=== PATIENT | male | born 1990 | race Two or more races ===

== ENCOUNTER 2022-12-17 14:01 | Inpatient (IN) | payer OTHER ==
[~2022-12-17] VITALS: Ht 175.3 cm; Wt 102.5 kg
--- NOTE | 2022-12-17 14:13 | NUR ---
CALLED FOR TRIAGE NO RESPONSE
[2022-12-17] MEDS ORDERED: MORPHINE SULFATE INJ 2 MG/ML DISP.SYRIN IV ONE ×2 (14:30→15:30)
[2022-12-17] MEDS ORDERED: ONDANSETRON HCL/PF 4 MG/2 ML VIAL IVP ONE (14:30)
[2022-12-17] MEDS ORDERED: IV NS 0.9% 1,000 ML BAG IV ONE ×2 (14:30→15:30)
--- NOTE | 2022-12-17 14:40 | NUR ---
Patient AOx4 able to communicate concerns and provide his history. Discussed plan of care and patient verbalized agreement.
[2022-12-17] MEDS ORDERED: ONDANSETRON HCL/PF 4 MG/2 ML VIAL ONE ×2 (14:41→15:16)
[2022-12-17] MEDS ORDERED: MORPHINE SULFATE INJ 4 MG/ML DISP.SYRIN ONE ×2 (14:42→15:16)
--- NOTE | 2022-12-17 14:45 | NUR ---
IV placed, no signs of infiltration.
--- NOTE | 2022-12-17 14:58 | NUR ---
Medications administered as ordered.
--- NOTE | 2022-12-17 14:59 | NUR ---
PT to CT, signed consent
[2022-12-17] MEDS ORDERED: IOHEXOL-300 100 ML VIAL IV ONE (15:01)
[2022-12-17] MEDS ORDERED: IV NS 0.9% 250 ML IV ONE (15:02)
[2022-12-17 15:03] LABS: BASOPHILS # (AUTO) 0.1 K/uL (0.0-0.2); BASOPHILS % (AUTO) 0.4 % (0.0-2.0); HEMATOCRIT 45 % (39-51); HEMOGLOBIN 15.1 g/dL (13.5-17.5); LYMPHOCYTES # (AUTO) 0.8 K/uL (0.8-4.8); LYMPHOCYTES % (AUTO) 2.6 % (20.0-44.0); MEAN CORPUSCULAR HGB CONC 33 g/dl (31.0-36.0); MEAN CORPUSCULAR VOLUME 86 fL (80-96); MONOCYTES # (AUTO) 1.4 K/uL (0.1-1.30); MONOCYTES % (AUTO) 4.5 % (2.0-12.0); NEUTROPHILS # (AUTO) 29.3 K/uL (1.8-8.9); NEUTROPHILS % (AUTO) 92.5 % (43.0-81.0); PLATELET COUNT (AUTO) 287 K/uL (150-450); RED BLOOD CELL COUNT(AUTO) 5.29 MIL/uL (4.5-6.0)
[2022-12-17 15:08] LABS: WHITE BLOOD COUNT (AUTO) 31.7 K/uL (4.3-11.0)
[2022-12-17 15:17] LABS: ALANINE AMINOTRANSFERASE 37 U/L (12-78); ALBUMIN 3.9 g/dL (3.4-5.0); ALKALINE PHOSPHATASE 60 U/L (46-116); ASPARTATE AMINOTRANSFERASE 15 U/L (15-37); BILIRUBIN,DIRECT 0.3 mg/dL (0.0-0.2); BILIRUBIN,TOTAL 1.5 mg/dL (0.2-1.0); CALCIUM, SERUM 8.9 mg/dL (8.5-10.1); CARBON DIOXIDE 21 mmol/L (21-32); CHLORIDE 104 mmol/L (98-107); CREATININE 1.2 mg/dL (0.6-1.3); GLUCOSE 132 mg/dL (74-106); LIPASE 46 U/L (73-393); POTASSIUM 3.9 mmol/L (3.5-5.1); SODIUM SERUM 137 mmol/L (136-145); TOTAL PROTEIN, SERUM 7.8 g/dL (6.4-8.2); UREA NITROGEN, BLOOD 10 mg/dL (7-18)
--- NOTE | 2022-12-17 15:17 | NUR ---
Patient states pain went down after morphine admin fro 9 to a 2/10, states that now it is back at 9/10. Informed MD, additional med has been ordered. Confirmed dose with
[2022-12-17] MEDS ORDERED: VANCOMYCIN 1 GM in IV D5W 250 ML IV ONE (15:30)
[2022-12-17] MEDS ORDERED: PIPERACILLIN /TAZOBACTAM 3.375 G in IV D5W 50 ML IV ONE (15:30)
[2022-12-17] MEDS ORDERED: ONDANSETRON HCL/PF - ER 4 MG/2 ML VIAL IV ONE (15:30)
--- NOTE | 2022-12-17 17:07 | NUR ---
LINSEY Alvarado, [phone] opt. 2 Auth# [id number], patient may be admitted
--- NOTE | 2022-12-17 19:23 | NUR ---
Hand off report given to Fausto, for continuity of care
--- NOTE | 2022-12-17 19:25 | NUR ---
bed given 120-1
[2022-12-17] MEDS ORDERED: HYDROMORPHONE 1 MG/1 ML DISP.SYRIN ONE (19:29)
[2022-12-17] MEDS ORDERED: HYDROMORPHONE 1 MG/1 ML DISP.SYRIN IV ONE (19:30)
[2022-12-17 19:59] LABS: LYMPHOCYTES % (MANUAL) 3 % (16-48); MONOCYTES % (MANUAL) 7 % (0-11.0); NEUTROPHILS % (MANUAL) 90 (42-76)
[2022-12-17] MEDS ORDERED: MAGNESIUM HYDROXIDE 30 ML UDC PO PRN (20:00)
[2022-12-17] MEDS ORDERED: ZOLPIDEM TARTRATE 5 MG TABLET PO PRN (20:00)
[2022-12-17] MEDS ORDERED: MAG HYDROX/AL HYDROX/SIMETH 30 ML UDC PO PRN (20:00)
[2022-12-17] MEDS ORDERED: Z GUARD REMEDY 4 OZ OINT TP PRN (20:00)
--- NOTE | 2022-12-17 20:10 | NUR ---
RN NOTE RECEIVED HAND OFF REPORT FROM ED NURSE FÉLIX
--- NOTE | 2022-12-17 20:11 | NUR ---
REPORT GIVEN TO LUCIE DAILY LIA FOR BED 120-1
[2022-12-17 20:25] VITALS: BP 153/85
--- NOTE | 2022-12-17 20:26 | NUR ---
TRANSFERED TO 120-1
--- NOTE | 2022-12-17 20:30 | NUR ---
ADMISSION NOTES ADMITTED A 32-YEAR-OLD MALE, TRANSPORTED VIA GURNEY BY 2 ED PERSONNEL, AAO X4, ON ROOM AIR. VITAL SIGNS FOLLOWS: 99.3, HR 112, RR 26, O2 96%, BP 153/85. ON TELE MONITOR SHOWING SINUS TACH. IV ACCESS ON RAC #20G, INTACT AND FLUSHES WELL, RUNNING NS AT 120 ML/HR. NO COMPLAIN OF PAIN AT THIS TIME. PATIENT IS AMBULATORY WITH BRP. SKIN ASSESSMENT DONE, SKIN IS INTACT. BELONGING LIST CHECKED AND PLACED IN CHART. SAFETY MEASURES IN PLACE: BED LOCKED AND IN LOWEST POSITION, SIDE RAILS UP X2, CALL LIGHT WITHIN REACH.
--- NOTE | 2022-12-17 20:51 | NUR ---
RN NOTE PATIENT'S VAPE IS PLACED IN THE CONTRABAND SAFE.
[2022-12-17] MEDS: PANTOPRAZOLE 40 MG VIAL IV SCH (21:46)
[2022-12-17] MEDS: PIPERACILLIN /TAZOBACTAM 3.375 G in IV D5W 50 ML IV SCH (21:47)
[2022-12-17] MEDS: HYDROMORPHONE INJ 2 MG/ML DISP.SYRIN IV PRN (23:11)
[2022-12-17] MEDS: VANCOMYCIN 1 GM in IV D5W 250ml IV SCH (23:39)
[2022-12-18] VITALS: BP 133/75
--- NOTE | 2022-12-18 03:00 | NUR ---
RN NOTE HANDOFF REPORT GIVEN TO MELLISA FAULKNER
--- NOTE | 2022-12-18 03:01 | NUR ---
RN NOTES RECEIVED REPORT FROM LUCIE RANGEL FOR CONTINUITY OF CARE.
--- NOTE | 2022-12-18 03:04 | NUR ---
RN NOTES PATIENT ASKED FOR SLEEPING PILLS, STATING "I CANNOT SLEEP I NEED SLEEPING PILL" AMBIEN 5MG GIVEN. PATIENT IS ALERT/ORIENTED X 4.
[2022-12-18] MEDS: HYDROMORPHONE INJ 2 MG/ML DISP.SYRIN IV PRN ×5 (03:27→21:18)
[2022-12-18 04:00] VITALS: BP 130/76
[2022-12-18] MEDS: IV NS 0.9% 1,000 ML IV PRN ×2 (04:40→22:35)
[2022-12-18 06:38] LABS: BASOPHILS % (AUTO) 0.1 % (0.0-2.0); EOSINOPHILS % (AUTO) 0.1 % (0.0-6.0); HEMATOCRIT 41 % (39-51); HEMOGLOBIN 13.4 g/dL (13.5-17.5); LYMPHOCYTES % (AUTO) 8.6 % (20.0-44.0); MEAN CORPUSCULAR HGB CONC 33 g/dl (31.0-36.0); MEAN CORPUSCULAR VOLUME 87 fL (80-96); MONOCYTES % (AUTO) 4.4 % (2.0-12.0); NEUTROPHILS # (AUTO) 20.1 K/uL (1.8-8.9); NEUTROPHILS % (AUTO) 86.8 % (43.0-81.0); PLATELET COUNT (AUTO) 260 K/uL (150-450); RED BLOOD CELL COUNT(AUTO) 4.67 MIL/uL (4.5-6.0); WHITE BLOOD COUNT (AUTO) 23.1 K/uL (4.3-11.0)
[2022-12-18 07:17] LABS: BILIRUBIN,TOTAL 1.6 mg/dL (0.2-1.0); CALCIUM, SERUM 8.5 mg/dL (8.5-10.1); CREATININE 0.8 mg/dL (0.6-1.3); MAGNESIUM 2.1 mg/dL (1.8-2.4); PHOSPHORUS 3.8 mg/dL (2.5-4.9); POTASSIUM 3.4 mmol/L (3.5-5.1); TOTAL PROTEIN, SERUM 6.5 g/dL (6.4-8.2)
--- NOTE | 2022-12-18 07:40 | NUR ---
FOOD ASSEMBLER NOTES PT RECEIVED IN BED, ASLEEP. ON ROOM AIR WITH NO S/S OF RESPIRATORY DISTRESS OR SOB. BREATHING EVEN AND UNLABORED. LAC 22G RUNNING NS @ 120 ML/HR. PATIENT DOES NOT APPEAR TO BE IN ANY PAIN OR DISTRESS. SAFETY PRECAUTIONS IN PLACE WITH BED IN LOWEST AND LOCKED POSITION, BED RAILS UP X2, WITH BED SIDE TABLE AND CALL LIGHT WITHIN REACH. WILL CONTINUE TO MONITOR.
[2022-12-18 08:00] VITALS: BP 103/54
[2022-12-18] MEDS: VANCOMYCIN 1 GM in IV D5W 250ml IV SCH ×3 (08:58→23:13)
[2022-12-18] MEDS: PIPERACILLIN /TAZOBACTAM 3.375 G in IV D5W 50 ML IV SCH (10:32)
--- NOTE | 2022-12-18 11:05 | NUR ---
RN NOTES REGARDING PAIN MEDS PATIENT REQUESTED INCREASE IN DOSAGE AND SHORTENED TIME FRAME FOR ADMINISTRATION OF DILAUDID. MELISSA ISLAS DID NOT APPROVE BUT ORDERED ATIVAN TO BE ALTERNATED WITH CURRENT DOES OF DILAUDID. Addendum: 12/18/22 at 1108 by NAVI WALKER RN MELISSA ISLAS DID NOT APPROVE BUT ORDERED ATIVAN TO BE ALTERNATED WITH CURRENT *DOSE OF DILAUDID.
--- NOTE | 2022-12-18 11:08 | NUR ---
RN NOTES FOR PAIN MEDS PATIENT REQUESTED THAT ATIVAN AND DILAUDID BE ROUTINELY ADMINISTERED EVERY 4 HOURS. WILL ENDORSE TO ONCOMING SHIFT WELL.
[2022-12-18 12:00] VITALS: BP 136/70
[2022-12-18] MEDS: LORAZEPAM INJ 2 MG/ML VIAL IV PRN (12:46)
[2022-12-18] MEDS: Thiamine 100 MG in IV D5W 50 ML IV SCH (12:53)
[2022-12-18] MEDS: POTASSIUM CL. PREMIX PERIPHER. 50 ML IV SCH ×2 (13:00→14:50)
--- NOTE | 2022-12-18 13:07 | NUR ---
RN NOTES ON PAIN MEDS PATIENT REFUSES ALTERNATING OF ATIVAN AND DILAUDID. WANTS TOGETHER OR NO ATIVAN AT ALL. WILL ADMINISTER CONCURRENTLY WITH APPROVAL FROM CHARGE NURSE
--- NOTE | 2022-12-18 14:38 | NUR ---
nursing sup notified partient complain about the pain meds,call light,spoke with yolie mills will ff. up.
--- NOTE | 2022-12-18 14:39 | NUR ---
Jamal petroleum supply specialist aware of pt complain he will request pain mgt consult.
--- NOTE | 2022-12-18 14:40 | NUR ---
pt. call again insisting to talk to nursing agency manager,nursing general handling supervisor notified again.
--- NOTE | 2022-12-18 15:02 | NUR ---
RN NOTES PATIENT REQUESTING MORE PAIN MEDICATION BEFORE 4 HOUR VIRAJ FOR DILAUDID.
--- NOTE | 2022-12-18 15:30 | NUR ---
RN NOTE PATIENT SITTING ON EDGE OF BED SPEAKING ON THE PHONE.
--- NOTE | 2022-12-18 15:39 | NUR ---
LUCIE NOTES PATIENT REFUSES POTASSIUM. SAYS HE CANNOT TOLERATE IT. Addendum: 12/18/22 at 1541 by NAVI WALKER RN MELISSA ISLAS NP NOTIFIED.
--- NOTE | 2022-12-18 15:40 | NUR ---
RN NOTES PATIENT STATES THAT HE WOULD LIKE HIS RFA IV REMOVED. Addendum: 12/18/22 at 1555 by NAVI WALKER RN PATIENT STATES THAT HE NO LONGER WANTS IT REMOVED. HE STATES THAT IT DOES NOT HURT.
[2022-12-18 16:00] VITALS: BP 155/87
--- NOTE | 2022-12-18 16:22 | NUR ---
RN NOTES REGARDING PAIN MEDS PT WANTS DILAUDID INSTEAD OF MORPHINE, BUT REQUESTING FOR IT TO BE GIVEN EVERY 3 HOURS INSTEAD OF 4. MELISSA ISLAS NOTIFIED.
--- NOTE | 2022-12-18 16:29 | NUR ---
RN NOTES ON PAIN MEDS MELISSA ISLAS NP SAYS DILAUDID MUST BE GIVEN EVERY 4 HOURS, NO SOONER.
--- NOTE | 2022-12-18 17:00 | NUR ---
RN NOTE NAVI GODWIN NURSING COPY LATHE OPERATOR SPOKE TO PATIENT AT BEDSIDE
[2022-12-18] MEDS: PIPERACILLIN /TAZOBACTAM 3.375 G in IV D5W 100 ML IV SCH (18:21)
[2022-12-18 20:00] VITALS: BP 143/74
--- NOTE | 2022-12-18 20:14 | NUR ---
EMPLOYMENT LAW ATTORNEY CLOSING NOTES PT IN BED WATCHING TV WITH FRIEND AT BEDSIDE. ON ROOM AIR WITH NO S/S OF RESPIRATORY DISTRESS OR SOB. BREATHING EVEN AND UNLABORED. LAC 22G INTACT AND PATENT. RFA 22G INTACT AND PATENT RUNNING NS @ 120 ML/HR. ALL DUE MEDS ADMINISTERED. DILAUDID GIVEN EVERY 4 HOURS. WILL ENDORSE PATIENTS REQUEST FOR STRICT PAIN MANAGEMENT TO ONCOMING SHIFT RN. ALL SAFETY PRECAUTIONS IN PLACE WITH BED IN LOWEST AND LOCKED POSITION, BED RAILS UP X2, WITH BED SIDE TABLE AND CALL LIGHT WITHIN REACH. WILL ENDORSE TO ONCOMING SHIFT FOR BEAU.
--- NOTE | 2022-12-18 20:15 | NUR ---
RN NOTE RECEIVED PT IN BED, ALERT, AWAKE, ORIENTED X4. PT ON ROOM AIR, RESPIRATIONS EVEN AND UNLABORED, NO ACUTE RESP DISTRESS NOTED. PT AFEBRILE. NS AT 120ML/HR INFUSING ON PIV RFA. PT CURRENTLY ON NPO STATUS AND ON STRICT PAIN MANAGEMENT MONITORING, PT NOTED WITH PAIN MED SEEKING BEHAVIOR PER REPORT FROM OUTGOING NURSE. SAFETY PRECAUTION IMPLEMENTED. CALL LIGHT WITHIN EASY REACH. WILL CONT POC
[2022-12-18] MEDS: PANTOPRAZOLE 40 MG VIAL IV SCH (20:28)
--- NOTE | 2022-12-18 21:18 | NUR ---
RN NOTE PT C/O PAIN 10/10 PS ON ABDOMINAL AREA, PRN DILAUDID GIVEN PER PT'S REQUEST ORDERED. WILL REASSESS PT
[2022-12-18] MEDS: MORPHINE SULFATE INJ 4 MG/ML DISP.SYRIN IM PRN (22:20)
--- NOTE | 2022-12-18 22:20 | NUR ---
RN NOTE PT NOTED C/O BREAKTHROUGH PAIN 8/10 ON ABDOMEN. PRN MORPHINE GIVEN ORDERED PER PT'S REQUEST. CHARGE NURSE AWARE. WILL REASSESS PT
--- NOTE | 2022-12-18 22:40 | NUR ---
RN NOTE PT STATED THAT CURRENT PRN SLEEPING MEDICATION AMBIEN 5MG IS NOT EFFECTIVE, PT REQUESTED FOR STRONGER SLEEPING MEDICATION. SOLAR INSTALLER DEBORAH NOTIFIED WITH NEW ORDER FOR RESTORIL 30MG AND TO DC AMBIEN 5MG. NOTED AND CARRIED OUT
[2022-12-18] MEDS ORDERED: TEMAZEPAM 15 MG CAPSULE PO PRN (23:00)
[2022-12-19] VITALS: BP 133/78
[2022-12-19] MEDS: PIPERACILLIN /TAZOBACTAM 3.375 G in IV D5W 100 ML IV SCH ×3 (00:09→15:13)
--- NOTE | 2022-12-19 02:30 | NUR ---
RN NOTE NOTED PT W C/O PAIN 10/10 PS ON ABDOMINAL AREA , PRN DILAUDID GIVEN ORDERED PER PT'S REQUEST. VSS. WILL REASSESS PT
[2022-12-19] MEDS: HYDROMORPHONE INJ 2 MG/ML DISP.SYRIN IV PRN (02:31)
[2022-12-19] MEDS: MORPHINE SULFATE INJ 4 MG/ML DISP.SYRIN IM PRN ×9 (03:57→23:01)
--- NOTE | 2022-12-19 03:57 | NUR ---
RN NOTE PT STATES THAT DILAUDID WEARS OFF FAST AND VERBALIZES PAIN 8/10 PS ON ABDOMINAL AREA, PRN MORPHINE GIVEN ORDERED PER PT'S REQUEST. CHARGE NURSE AWARE. VSS. BP- 130/68 HR- 96, O2 SAT- 95%. WILL REASSESS PT
[2022-12-19 04:00] VITALS: BP 130/68
--- NOTE | 2022-12-19 04:27 | NUR ---
RN NOTE PAIN MEDICATION REASSESSMENT: PT CURRENTLY ASLEEP, AROUSES EASILY. RISE AND FALL OF CHEST NOTED, RESP EVEN AND UNLABORED. NO EVIDENCE OF PAIN/DISCOMFORT AT THIS TIME. CALL LIGHT WITHIN REACH.
[2022-12-19 07:10] LABS: BASOPHILS % (AUTO) 0.2 % (0.0-2.0); EOSINOPHILS % (AUTO) 0.6 % (0.0-6.0); HEMATOCRIT 39 % (39-51); HEMOGLOBIN 13.1 g/dL (13.5-17.5); LYMPHOCYTES % (AUTO) 15.8 % (20.0-44.0); MEAN CORPUSCULAR HGB CONC 34 g/dl (31.0-36.0); MEAN CORPUSCULAR VOLUME 86 fL (80-96); MONOCYTES # (AUTO) 0.8 K/uL (0.1-1.30); NEUTROPHILS # (AUTO) 9.9 K/uL (1.8-8.9); NEUTROPHILS % (AUTO) 77.4 % (43.0-81.0); PLATELET COUNT (AUTO) 229 K/uL (150-450); RED BLOOD CELL COUNT(AUTO) 4.53 MIL/uL (4.5-6.0); WHITE BLOOD COUNT (AUTO) 12.8 K/uL (4.3-11.0)
--- NOTE | 2022-12-19 07:15 | NUR ---
RN NOTE PT CO PAIN ON IV SITE ON LAC, PT REQUESTED CURRENT LINE TO BE REMOVED. ATTEMPTED TO INSERT NEW LINE TWICE, HOWEVER UNSUCCESSFUL. CHARGE NURSE AWARE. WILL REQUEST FOR MD TO ORDER MIDLINE INSERTION, WILL ENDORSE AND COMMUNICATE TO IN COMING SHIFT NURSE.
[2022-12-19 07:32] LABS: CALCIUM, SERUM 8.5 mg/dL (8.5-10.1); CREATININE 0.7 mg/dL (0.6-1.3); POTASSIUM 3.3 mmol/L (3.5-5.1)
[2022-12-19 07:43] LABS: ALBUMIN 2.7 g/dL (3.4-5.0); BILIRUBIN,TOTAL 1.2 mg/dL (0.2-1.0); TOTAL PROTEIN, SERUM 6.4 g/dL (6.4-8.2)
--- NOTE | 2022-12-19 07:55 | NUR ---
tele r note per dr jairo robert to tranfer to med surge patient constantly remove tel box despite explanation
[2022-12-19 08:00] VITALS: BP 117/60
[2022-12-19] MEDS: VANCOMYCIN 1 GM in IV D5W 250ml IV SCH (08:25)
[2022-12-19] MEDS: Potassium Chloride 40 MEQ in IV D5/ 0.9% NACL 1,000 ML IV SCH ×2 (09:27→19:00)
[2022-12-19] MEDS: Thiamine 100 MG in IV D5W 50 ML IV SCH (11:10)
--- NOTE | 2022-12-19 11:33 | NUR ---
Patient requesting hospital [facility] information and was given information per Charge Nurse regarding patient social work administrator aware and will provide all information to him as the information is not available to the unit.
--- NOTE | 2022-12-19 11:58 | NUR ---
Patient given information as per his request from social media marketing manager. Questions he has per his report at this moment in hospitalization are satisfactory in explanation.
--- NOTE | 2022-12-19 12:04 | NUR ---
SS note: SS consult requested as pt. is asking for [employer]'s phone number. SW met with pt. at bedside. The pt. is a 32 year old male who was admitted on 12/17/2022 for Diverticulitis. Upon SS consult, the pt. is alert & oriented x 4 and makes piercing eye contact. The Pt. has pressured speech and is restless. Pt. states he resides at home [[address] [place], [place] [address]; [phone]] with family. Pt. stated he is unsatisfied with the care he has received thus far. Per pt. he has already spoke to [facility] nursing user support analyst supervisor. SW provided emotional support and used active listening, validating his feeling and provided him [employer]'s telephone number. Per pt. he use resources provided to call Ombudsman if needed tel: [phone]. Pt. thanked CHAI and stated he will use resources if he desires to make report.
--- NOTE | 2022-12-19 12:48 | NUR ---
Patient concern about emergency room visit he says he was leaning up against a wall begging a nurse to give him medication and instead other people in the waiting had got in to the department before him when he says his problem was more severe and he had been there longer. He wants to know when he is going home. He says he was not given treatment and claims if he is going home now he will go to another hospital and intensive care unit to have a workup and if the findings are still present he says it will be very bad for this doctor. He was given education that discharge orders are not present at this time and if he has any consulting physicians, the attending physician may wait to discharge if not clear from another disciplines standpoint. He is having excessive pain and says others are not sensitive that he has not been given by mouth fluids except ice chips which he says is causing pain to increase. He says it is throbbing due to the infection present. Providing active listening and verbalizing understanding of patient concerns.
[2022-12-19] MEDS: VANCOMYCIN 1.25 GM in IV D5W 250 ML IV SCH ×2 (13:01→20:36)
--- NOTE | 2022-12-19 13:10 | NUR ---
PATIENT ALERT AND VERBALLY RESPONSIVE, NO SOB NOTED, RESPIRATION EVEN AND UNLABORED, NOT IN ANY DISTRESS, DENIES ANY PAIN AT THIS MOMENT. PLAN OF CARE CONTINUE. Addendum: 12/19/22 at 1501 by MEEK YAP RN CORRECTION [id number]
--- NOTE | 2022-12-19 13:37 | NUR ---
Suggestion after charge nurse discussion with attending MD for psych evaluation due to patient worry about details of events and contacting omlizzie discussion and patient states "Get out of my room, {gesture with hand} you look in the mirror. You look like a pedophile. I don't want you anymore. You don't even know me more than a few hours." Patient notification his evaluation was cancelled per his request. Discussion with charge nurse and patient assignment to, Nandini, with handoff regarding patient care.
--- NOTE | 2022-12-19 13:50 | NUR ---
SS NOTE: SW received additional call from charge nurse stating pt. wanted to speak to CM and SW together. Call was transferred to pt.'s room so that CM & SW may speak to him. This SW presented herself and presented the CMWilian at the beginning of the conversation. Pt. expressed understanding and stated he feels offended because the current nurse notified him that he would have a psych consult to assist him with "biopsychosocial needs". Pt. stated, "I have been nothing but nice to the nurse all day, thanking him and he goes and orders psych consult like if I am nuts". SW used active listening and explained that the doctor is the one who orders the psych consult if he feels its appropriate. SW explained to pt. that a psych consult does not mean anyone thinks he is "nuts" and SW attempted to educate pt. on what biopsychosocial needs means. Pt. has paranoid ideation, victimizing himself, stating all the medical staff is neglecting him. Pt. refused psych consult. Pt. became upset when the rifle case repairer began to speak stating, "I do not appreciate someone else being on the line as it feels like I am being spied on". SW reminded pt. that SW introduced herself and CM at the beginning of the call. Pt. stated "Oh I didn't realize that". CHAI spoke to the charge nurse and CRAlyson stated pt. will be assigned new nurse and they will continue to provided patient centered care.
--- NOTE | 2022-12-19 14:00 | NUR ---
RECEIVED REPORT FROM KAIN FAULKNER.
--- NOTE | 2022-12-19 15:00 | NUR ---
PATIENT IS CALM AND PLEASANT, PRN MEDICATION GIVEN.
--- NOTE | 2022-12-19 15:35 | NUR ---
PATIENT CALM AND PLEASANT, PATIENT STATED HE ONLY SLEEP 1 HOUR THE WHOLE DAY AND NIGHT, HE IS ASKING FOR SLEEPING PILLS, PATIENT NOTED ON RESTORIL Q HS, PER PATIENT IT'S NOT HELPING, INFORMED MELISSA GUEST SERVICES MANAGER, WITH ORDER TO CHANGED TO AMBIEN 10MG PO Q HS PRN, NOTED AND CARRIED OUT, INFORMED PATIENT OF THE NEW ORDER.
--- NOTE | 2022-12-19 15:57 | NUR ---
PATIENT NOTED UPSET STATING HE ONLY SLEEP FOR 1 HOUR, ASKED PATIENT NICELY WHAT MEDICATIONS DOES HE TAKE AT HOME FOR SLEEPLESSNESS, PER PATIENT HE DON'T TAKE ANYTHING AT HOME. PER PATIENT RESTORIL AND AMBIEN DON'T HELP HIM. ASKED PATIENT IF ATIVAN WILL HELP HIM RELAX AND SLEEP, PER PATIENT ATIVAN DOESN'T WORK, PATIENT STATED " IF YOU GUYS CAN DOUBLE THE DOSE OF MORPHINE 8MG Q2HR MAYBE IT CAN HELP ME SLEEP", INFORMED MELISSA CRM MANAGER, PER MELISSA CRM MANAGER HE WILL NOT INCREASE THE MORPHINE DOSING, INFORMED CHARGE NURSE TAMARA.
[2022-12-19 16:00] VITALS: BP 130/76
--- NOTE | 2022-12-19 16:39 | NUR ---
INFORMED PATIENT THAT MELISSA YARDMASTER WON'T INCREASE HIS MORPHINE, PATIENT IS VERY UPSET, INFORMED THAT I CAN GIVE HIS DUE MORPHINE, PATIENT STATED OK.
--- NOTE | 2022-12-19 17:30 | NUR ---
REINSERTED A NEW PERIPHERAL IV LINE ON RIGHT AC GAUGE 24, PATENT AND INTACT FLUSHES WELL. PATIENT REFUSED TO INSERT A NEW PIV WITH A BIGGER GAUGE.
--- NOTE | 2022-12-19 19:00 | NUR ---
RN CLOSING NOTES PATIENT IN BED AWAKE, PATIENT TALKING ON THE PHONE, ON ROOM AIR WITH NO S/S OF RESPIRATORY DISTRESS OR SOB. BREATHING EVEN AND UNLABORED. RAC 24G PATENT AND INTACT, FLUSHES WELL, WITH D5 NS RUNNING AT 100ML/HR. PRN MS GIVEN ORDERED, TOLERATED WELL. ALL SAFETY PRECAUTIONS IN PLACE WITH BED IN LOWEST AND LOCKED POSITION, BED RAILS UP X2, WITH BED SIDE TABLE AND CALL LIGHT WITHIN REACH. WILL ENDORSE TO NIGHT NURSE FOR BEAU.
--- NOTE | 2022-12-19 19:30 | NUR ---
RN NOTE RECEIVED PT IN BED, ALERT, AWAKE, ORIENTED X4. PT ON ROOM AIR, RESPIRATIONS EVEN AND UNLABORED, NO ACUTE RESP DISTRESS NOTED. PT AFEBRILE.D5 NS + 40 MEQ KCL AT 100ML/HR INFUSING ON PIV RAC. PT CURRENTLY ON NPO STATUS AND ON STRICT PAIN MANAGEMENT MONITORING, PT NOTED WITH PAIN MED SEEKING BEHAVIOR PER REPORT FROM OUTGOING NURSE. SAFETY PRECAUTION IMPLEMENTED. CALL LIGHT WITHIN EASY REACH. WILL CONT POC
[2022-12-19 20:00] VITALS: BP 136/71
[2022-12-19] MEDS: PANTOPRAZOLE 40 MG VIAL IV SCH (20:36)
[2022-12-19] MEDS: ZOLPIDEM TARTRATE 10 MG TABLET PO PRN (23:05)
[2022-12-20] MEDS: PIPERACILLIN /TAZOBACTAM 3.375 G in IV D5W 100 ML IV SCH ×4 (00:44→23:53)
[2022-12-20] MEDS: MORPHINE SULFATE INJ 4 MG/ML DISP.SYRIN IM PRN ×11 (01:16→22:03)
[2022-12-20 04:00] VITALS: BP 111/72
[2022-12-20] MEDS: VANCOMYCIN 1.25 GM in IV D5W 250 ML IV SCH (05:04)
[2022-12-20] MEDS: Potassium Chloride 40 MEQ in IV D5/ 0.9% NACL 1,000 ML IV SCH ×2 (05:09→15:52)
[2022-12-20 06:20] LABS: BASOPHILS # (AUTO) 0.1 K/uL (0.0-0.2); BASOPHILS % (AUTO) 0.4 % (0.0-2.0); EOSINOPHILS % (AUTO) 0.7 % (0.0-6.0); HEMATOCRIT 40 % (39-51); HEMOGLOBIN 13.1 g/dL (13.5-17.5); LYMPHOCYTES # (AUTO) 1.4 K/uL (0.8-4.8); LYMPHOCYTES % (AUTO) 10.7 % (20.0-44.0); MEAN CORPUSCULAR HGB CONC 33 g/dl (31.0-36.0); MEAN CORPUSCULAR VOLUME 86 fL (80-96); MONOCYTES % (AUTO) 7.7 % (2.0-12.0); NEUTROPHILS # (AUTO) 10.5 K/uL (1.8-8.9); NEUTROPHILS % (AUTO) 80.5 % (43.0-81.0); PLATELET COUNT (AUTO) 240 K/uL (150-450); RED BLOOD CELL COUNT(AUTO) 4.66 MIL/uL (4.5-6.0); WHITE BLOOD COUNT (AUTO) 13.1 K/uL (4.3-11.0)
--- NOTE | 2022-12-20 06:51 | NUR ---
RN NOTES PATIENT IN BED NO SIGNIFICANT CHANGES IV IN R AC # 24 PATENT RUNNING D5 NS + 40 MEQ KCL AT 100 CC/HR. MORPHINE GIVEN Q2H REQUESTED BY PATIENT. ALL NEEDS ATTENDED. WILL ENDORSED TO MORNING SHIFT FOR BEAU
--- NOTE | 2022-12-20 07:00 | NUR ---
RN OPENING NOTE PATIENT IN BED AWAKE, ON ROOM AIR WITH NO S/S OF RESPIRATORY DISTRESS OR SOB. BREATHING EVEN AND UNLABORED. RAC 24G PATENT AND INTACT, FLUSHES WELL, WITH D5 NS RUNNING AT 100ML/HR. PRN MS GIVEN ORDERED, TOLERATED WELL. ALL SAFETY PRECAUTIONS IN PLACE WITH BED IN LOWEST AND LOCKED POSITION, BED RAILS UP X2, WITH BED SIDE TABLE AND CALL LIGHT WITHIN REACH. WILL CONTINUE TO MONITOR.
[2022-12-20 07:10] LABS: CALCIUM, SERUM 8.4 mg/dL (8.5-10.1); CREATININE 0.7 mg/dL (0.6-1.3); POTASSIUM 3.1 mmol/L (3.5-5.1)
--- NOTE | 2022-12-20 08:55 | NUR ---
PT ASKING FOR MORPHINE Q 2 HOURS, NO VISIBLE DISTRESS NOTED, NO SOB, PER PT HIS LEVEL OF PAIN IS 8.
[2022-12-20] MEDS: POTASSIUM CL. PREMIX PERIPHER. 50 ML IV SCH ×2 (09:02→10:09)
[2022-12-20] MEDS: PANTOPRAZOLE 40 MG/PACK PACK PO SCH (10:09)
--- NOTE | 2022-12-20 11:15 | NUR ---
PATIENT HAD MORPHINE IV AT 09:05 AND 11:10. PT ASKING FOR HIS SMOCKING DEVICE VIPE, WHICH BEEN STORED AT [employer] UPON ADMISSION, AND WANTS TO WALK OUTSIDE. PT HAS IV FLUIDS RUNNING: ZOSYN 25ML/HR FOR 4 HR FROM 8 TO 12, POTASSIUM AND D5/NS; UNABLE TO D/C HIS IV AT THIS TIME TO LET HIM WALK OUTSIDE.
--- NOTE | 2022-12-20 11:30 | NUR ---
PT IS UPSET, C/O NOISE, STATED THAT HE NEEDS GO OUTSIDE AND HIS IV ACCESS BOTHERS HIM, BUT NO REDNESS OR TEMPERATURE CHANGE NOTED, FLUSHES WELL. INFORMED THAT WE ARE UNABLE TO TAKE HIS IV POLE OUTSIDE.
[2022-12-20 12:00] VITALS: BP 119/78
--- NOTE | 2022-12-20 12:05 | NUR ---
PT BECAME ANGRY, CALLING NAMES, THROW SOME ITEMS FROM HIS LUNCH TRAY.
[2022-12-20] MEDS: Thiamine 100 MG in IV D5W 50 ML IV SCH ×2 (12:43→14:20)
--- NOTE | 2022-12-20 12:44 | NUR ---
UNABLE TO GET THIAMINE FROM PHARMACY, CALL 5 TIMES, BEEN TOLD THAT MEDICATION IS HERE OR GOING TO BE HERE, BUT NOT BEEN DELIVERED.
--- NOTE | 2022-12-20 14:15 | NUR ---
PATIENT WENT OUTSIDE ACCOMPANIED BY ONE OF THE NURSES.
--- NOTE | 2022-12-20 19:44 | NUR ---
RN CLOSING NOTE PATIENT IN BED AWAKE, ON ROOM AIR WITH NO S/S OF RESPIRATORY DISTRESS OR SOB. BREATHING EVEN AND UNLABORED. RAC 24G PATENT AND INTACT, FLUSHES WELL, WITH D5 NS RUNNING AT 100ML/HR. PT IS AMBULATORY. ALL NEEDS ATTENDED, MEDICATION ADMINISTERED. WILL ENDORSE TO THE NEXT SHIFT NURSE FOR BEAU.
[2022-12-20 20:00] VITALS: BP 117/71
--- NOTE | 2022-12-20 20:18 | NUR ---
RECEIVED PATIENT IN BED, ALERT/ORIENTED X4, ROOM AIR, ABDOMINAL PAIN, INDEPENDENT WITH SELF CARE, DIVERTICULITIS, CLEAR LIQUID DIET. GIVEN MORPHINE 4 MG IV. PATIENT ASKING WHERE IS THE VAPE, PER CHARGE NURSE, LOCATED IN THE SAFE. D5NS + KCL 40 MEQ AT 100 ML/HR. KEPT SAFE, WILL CONTINUE TO MONITOR.
[2022-12-20] MEDS: ZOLPIDEM TARTRATE 10 MG TABLET PO PRN (23:05)
[2022-12-21] MEDS: MORPHINE SULFATE INJ 4 MG/ML DISP.SYRIN IM PRN ×8 (00:28→22:35)
[2022-12-21] MEDS: Potassium Chloride 40 MEQ in IV D5/ 0.9% NACL 1,000 ML IV SCH ×2 (02:43→11:02)
[2022-12-21 04:00] VITALS: BP 121/79
--- NOTE | 2022-12-21 06:47 | NUR ---
SEPSIS AND ACUTE DIVERTICULITIS. ALERT/ORIENTED X4, STABLE ON ROOM AIR, ABDOMINAL PAIN, MORPHINE 4 MG IV Q2HRS, GIVEN ROUND THE CLOCK. SORIN MIDLINE, INDEPENDENT WITH SELF CARE, ON CLEAR LIQUID DIET, NO COMPLAIN OF N/V. CONTINUE BOWEL REST, ZOSYN Q8HRS, AFTER CLEAR LIQUID, RECOMMENDS LOW FIBER DIET. MONITOR POTASSIUM, PAIN CONTROL. VAPE KEPT IN SAFE.
--- NOTE | 2022-12-21 07:00 | NUR ---
RN OPENING NOTE PATIENT IN BED ASLEEP, ON ROOM AIR WITH NO S/S OF RESPIRATORY DISTRESS OR SOB. BREATHING EVEN AND UNLABORED. SAFETY MEASURES IMPLEMENTED, BED IN LOWEST LOCKED POSITION, CALL LIGHT WITHIN REACH. WILL CONTINUE TO MONITOR.
[2022-12-21 07:17] LABS: BASOPHILS % (AUTO) 0.3 % (0.0-2.0); EOSINOPHILS % (AUTO) 1.2 % (0.0-6.0); HEMATOCRIT 38 % (39-51); HEMOGLOBIN 12.7 g/dL (13.5-17.5); LYMPHOCYTES # (AUTO) 1.7 K/uL (0.8-4.8); LYMPHOCYTES % (AUTO) 13.5 % (20.0-44.0); MEAN CORPUSCULAR HGB CONC 33 g/dl (31.0-36.0); MEAN CORPUSCULAR VOLUME 86 fL (80-96); MONOCYTES # (AUTO) 1.3 K/uL (0.1-1.30); MONOCYTES % (AUTO) 10.2 % (2.0-12.0); NEUTROPHILS # (AUTO) 9.3 K/uL (1.8-8.9); NEUTROPHILS % (AUTO) 74.8 % (43.0-81.0); PLATELET COUNT (AUTO) 278 K/uL (150-450); RED BLOOD CELL COUNT(AUTO) 4.44 MIL/uL (4.5-6.0); WHITE BLOOD COUNT (AUTO) 12.5 K/uL (4.3-11.0)
[2022-12-21 07:48] LABS: CALCIUM, SERUM 8.6 mg/dL (8.5-10.1); CREATININE 0.7 mg/dL (0.6-1.3); POTASSIUM 3.4 mmol/L (3.5-5.1)
[2022-12-21] MEDS: PIPERACILLIN /TAZOBACTAM 3.375 G in IV D5W 100 ML IV SCH ×2 (08:04→15:08)
[2022-12-21] MEDS: PANTOPRAZOLE 40 MG/PACK PACK PO SCH (08:37)
[2022-12-21 12:00] VITALS: BP 121/79
--- NOTE | 2022-12-21 18:12 | NUR ---
PATIENT INSISTED THAT HE NEEDS TO GO OUTSIDE RIGHT AFTER MORPHINE IV, TO SMOKE HIS VAPE, WHICH STORED IN CONTRABAND SAFE, THE VAPE HAS CLEAR YELLOW OIL THROUGH VISIBLE INSIDE AND STRONG SMELL OF WEED. UNABLE TO PROVIDE THIS SMOKING DEVICE TO PT.NOTIFIED NURSING ENTERPRISE ACCOUNT MANAGER IF PT CAN SMOKE VAPE OUTSIDE.GAS ENGINEER AWARE. NURSING ENTERPRISE ACCOUNT MANAGER SAID NO.PT AGREED TO WALK AROUND THE BACK PATIO OF HOSPITAL ACCOMPANIED BY FLEXIBLE BABYSITTER. PT VERBALIZED UNDERSTANDING THAT HE CAN NOT SMOKE OUTSIDE THE HOSPITAL.PT AGREED TO WALK AROUND WITH ENGINEERING TECHNOLOGY INSTRUCTOR
[2022-12-21 20:00] VITALS: BP 141/61
[2022-12-21] MEDS ORDERED: KETOROLAC TROMETHAMINE INJ 30 MG/ML VIAL IV ONE (22:00)
[2022-12-22] MEDS: Potassium Chloride 40 MEQ in IV D5/ 0.9% NACL 1,000 ML IV SCH ×3 (00:27→20:37)
[2022-12-22] MEDS: MORPHINE SULFATE INJ 4 MG/ML DISP.SYRIN IM PRN ×8 (00:28→23:36)
[2022-12-22] MEDS: PIPERACILLIN /TAZOBACTAM 3.375 G in IV D5W 100 ML IV SCH ×3 (00:34→20:38)
[2022-12-22] MEDS: ACETAMINOPHEN 325 MG TABLET PO PRN (01:32)
[2022-12-22] MEDS: ZOLPIDEM TARTRATE 10 MG TABLET PO PRN ×2 (01:33→23:01)
[2022-12-22 04:00] VITALS: BP 138/68
[2022-12-22 06:47] LABS: BASOPHILS % (AUTO) 0.2 % (0.0-2.0); HEMATOCRIT 41 % (39-51); HEMOGLOBIN 13.8 g/dL (13.5-17.5); LYMPHOCYTES # (AUTO) 0.8 K/uL (0.8-4.8); LYMPHOCYTES % (AUTO) 5.5 % (20.0-44.0); MEAN CORPUSCULAR HGB CONC 34 g/dl (31.0-36.0); MEAN CORPUSCULAR VOLUME 85 fL (80-96); MONOCYTES # (AUTO) 0.6 K/uL (0.1-1.30); MONOCYTES % (AUTO) 4.5 % (2.0-12.0); NEUTROPHILS # (AUTO) 12.9 K/uL (1.8-8.9); NEUTROPHILS % (AUTO) 89.8 % (43.0-81.0); PLATELET COUNT (AUTO) 316 K/uL (150-450); RED BLOOD CELL COUNT(AUTO) 4.82 MIL/uL (4.5-6.0); WHITE BLOOD COUNT (AUTO) 14.3 K/uL (4.3-11.0)
[2022-12-22 07:09] LABS: CALCIUM, SERUM 8.4 mg/dL (8.5-10.1); CREATININE 0.9 mg/dL (0.6-1.3); POTASSIUM 3.4 mmol/L (3.5-5.1)
[2022-12-22 08:00] VITALS: BP 144/66
[2022-12-22] MEDS: PANTOPRAZOLE 40 MG/PACK PACK PO SCH (09:23)
[2022-12-22] MEDS: THIAMINE HCL 100 MG TABLET PO SCH (11:24)
[2022-12-22] MEDS ORDERED: MORPHINE SULFATE INJ 4 MG/ML DISP.SYRIN IV PRN (11:30)
[2022-12-22] MEDS ORDERED: IOHEXOL-300 100 ML VIAL IV ONE (14:11)
[2022-12-22] MEDS ORDERED: IV NS 0.9% 250 ML IV ONE (14:11)
[2022-12-22 16:00] VITALS: BP 137/67
--- NOTE | 2022-12-22 16:10 | NUR ---
PATIENT BROUGHT TO OR FOR EXLAP WITH TEMP COLOSTOMY. CONSENT SIGNED. PRE OP CHECKLIST DONE
[2022-12-22] MEDS ORDERED: ALBUMIN 5% 500 ML IV ONE (16:15)
[2022-12-22] MEDS ORDERED: FENTANYL PF 100MCG/2ML AMPUL ONE (16:16)
[2022-12-22] MEDS ORDERED: MIDAZOLAM HCL 2 MG/2ML VIAL ONE ×2 (16:16→16:22)
[2022-12-22] MEDS ORDERED: KETAMINE HCL (500MG/10ML) 50 MG/ML VIAL ONE (16:16)
[2022-12-22] MEDS ORDERED: FAMOTIDINE/PF INJ 20 MG/2 ML VIAL IV ONE (16:16)
[2022-12-22] MEDS ORDERED: ROCURONIUM BROMIDE 50 MG/5 ML ONE (16:16)
[2022-12-22] MEDS ORDERED: BUPIVACAINE MPF 0.75% 30 ML VIAL ONE (16:18)
[2022-12-22] MEDS ORDERED: ANESTHESIA TRAY IN PYXIS 1 EA TRAY MC ONE ×2 (16:35→19:52)
[2022-12-22] MEDS ORDERED: BUPIVACAINE MPF 0.5% W/EPI INJ 30 ML VIAL ONE (16:35)
[2022-12-22] MEDS ORDERED: METRONIDAZOLE 500MG/ NS 100ML 100 ML IV ONE (16:56)
[2022-12-22] MEDS ORDERED: ALBUMIN 25% 50 ML IV ONE ×2 (17:03)
[2022-12-22] MEDS ORDERED: HYDROMORPHONE INJ 2 MG/ML DISP.SYRIN ONE (18:05)
--- NOTE | 2022-12-22 18:31 | NUR ---
END OF SHIFT SUMMARY PATIENT IS A/O X4. SATURATING WELL ON RA. AMBULATORY. PAIN MANAGED WITH MORPHINE. IV ACCESS ON SORIN ML D5NS WITH KCL 40 mEqs RUNNING AT 100 ML/HR. TOLERATING ANTIBIOTICS WELL. SAFETY MEASURES MAINTAINED. BED IN LOWEST POSITION, BRAKES LOCKED. SIDE RAILS UP X2. CALL LIGHT WITHIN REACH. WILL ENDORSE CONTINUITY OF CARE TO ONCOMING SHIFT. 183 PATIENT STILL IN OR
[2022-12-22] MEDS ORDERED: ONDANSETRON HCL/PF 4 MG/2 ML VIAL ONE (18:52)
[2022-12-22] MEDS ORDERED: HYDROMORPHONE 1 MG/1 ML DISP.SYRIN ONE (19:00)
--- NOTE | 2022-12-22 19:35 | NUR ---
RN OPENING NOTES: PT RETURNED FROM OR, S/P EXPLORATORY LAPAROTOMY W/ TEMP COLOSTOMY AND PLACEMENT OF DRAIN SIGMOID COLON RESECTION. PT AWAKE, ALERT/ORIENTED X4 AND VERBALLY RESPONSIVE. ON 2L/MIN VIA N/C AND PT TOLERATED WELL. IV ACCESSES ON SORIN ML, RT WRIST#20G AND LEFT HAND #18 G INTACT AND PATENT. NO S/S OF INFILTRATIONS. DILAUDID GIVEN AT OR. BUT C/O PAIN OR DISCOMFORT. NOTED SURGICAL INCISION FROM MID ABDOMEN EXTENDED TO LOWER. COVERED WITH DRY DRESSING. BILL CEE DRAINING WELL WITH RED/SEROSANGUINEOUS FLUID. NOTED LEFT LOWER ABDOMEN WITH COLOSTOMY BAG. SCANT OF BLEEDING NOTED. MOM AT BEDSIDE. S/ SURGERY ORDERED NOTED AND CARRIED OUT. ANDREW CATHETER IN PLACE. DRAINING BY GRAVITY. NOTED DARK/HETAL COLOR URINE. ALL SAFETY MEASURES IN PLACE. BED IN LOWEST POSITION AND LOCKED. SIDE RAILS UP X3. PLACE CALL LIGHT WITH IN REACH. WILL CONTINUE TO MONITOR
[2022-12-22 19:50] LABS: BASOPHILS % (AUTO) 0.1 % (0.0-2.0); HEMATOCRIT 39 % (39-51); HEMOGLOBIN 12.6 g/dL (13.5-17.5); LYMPHOCYTES # (AUTO) 1.6 K/uL (0.8-4.8); LYMPHOCYTES % (AUTO) 8.6 % (20.0-44.0); MEAN CORPUSCULAR HGB CONC 33 g/dl (31.0-36.0); MEAN CORPUSCULAR VOLUME 87 fL (80-96); MONOCYTES # (AUTO) 1.3 K/uL (0.1-1.30); MONOCYTES % (AUTO) 6.9 % (2.0-12.0); NEUTROPHILS # (AUTO) 15.6 K/uL (1.8-8.9); NEUTROPHILS % (AUTO) 84.4 % (43.0-81.0); PLATELET COUNT (AUTO) 315 K/uL (150-450); RED BLOOD CELL COUNT(AUTO) 4.44 MIL/uL (4.5-6.0); WHITE BLOOD COUNT (AUTO) 18.5 K/uL (4.3-11.0)
[2022-12-22 20:00] VITALS: BP 145/87
[2022-12-22] MEDS: METOCLOPRAMIDE HCL 10 MG/2 ML VIAL IV SCH (20:38)
--- NOTE | 2022-12-22 23:04 | NUR ---
RN NOTES: PT C/O UNABLE TO SLEEP. AMBIEN 10 MG TAB GIVEN AND PT TOLERATED WELL.
--- NOTE | 2022-12-22 23:43 | NUR ---
RN NOTES: PT C/O SEVERE PAIN ON ABDOMEN SURGERY SITE. MORPHINE GIVEN ORDERED. WILL CONTINUE TO MONITOR
[2022-12-23] MEDS: METOCLOPRAMIDE HCL 10 MG/2 ML VIAL IV SCH ×4 (03:01→20:00)
[2022-12-23] MEDS: PIPERACILLIN /TAZOBACTAM 3.375 G in IV D5W 100 ML IV SCH ×3 (03:44→20:00)
[2022-12-23 04:00] VITALS: BP 128/75
[2022-12-23] MEDS: Potassium Chloride 40 MEQ in IV D5/ 0.9% NACL 1,000 ML IV SCH ×2 (05:35→16:40)
[2022-12-23] MEDS: MORPHINE SULFATE INJ 4 MG/ML DISP.SYRIN IM PRN ×2 (06:27→08:34)
--- NOTE | 2022-12-23 06:32 | NUR ---
RN CLOSING NOTES: PT AWAKE, ALERT/ORIENTED X4 AND VERBALLY RESPONSIVE. ON 2L/MIN VIA N/C AND PT TOLERATED WELL. O2 SAT 98%. IV ACCESSES ON SORIN ML, RT WRIST#20G AND LEFT HAND #18 G INTACT AND PATENT. NO S/S OF INFILTRATIONS. C/O PAIN OR DISCOMFORT ON SURGERY SITE, MORPHINE GIVEN ORDERED. BILL CEE DRAINING WELL WITH RED/SEROSANGUINEOUS FLUID. DRAINING 180CC FLUID. COLOSTOMY BAG IN PLACE. SCANT OF BLEEDING. NO SIGNIFICANT CHANGES NOTED. ANDREW CATHETER IN PLACE. DRAINING BY GRAVITY. NOTED DARK/HETAL COLOR URINE. ALL SAFETY MEASURES IN PLACE. BED IN LOWEST POSITION AND LOCKED. SIDE RAILS UP X3. PLACE CALL LIGHT WITH IN REACH. WILL ENDORSE TO MORNING SHIFT NURSE.
[2022-12-23 07:07] LABS: CALCIUM, SERUM 8.1 mg/dL (8.5-10.1); CREATININE 0.7 mg/dL (0.6-1.3); POTASSIUM 3.8 mmol/L (3.5-5.1)
[2022-12-23 07:19] LABS: HEMATOCRIT 38 % (39-51); HEMOGLOBIN 12.4 g/dL (13.5-17.5); LYMPHOCYTES # (AUTO) 0.9 K/uL (0.8-4.8); LYMPHOCYTES % (AUTO) 5.8 % (20.0-44.0); MEAN CORPUSCULAR HGB CONC 33 g/dl (31.0-36.0); MEAN CORPUSCULAR VOLUME 86 fL (80-96); MONOCYTES # (AUTO) 1.2 K/uL (0.1-1.30); MONOCYTES % (AUTO) 7.5 % (2.0-12.0); NEUTROPHILS # (AUTO) 14.1 K/uL (1.8-8.9); NEUTROPHILS % (AUTO) 86.7 % (43.0-81.0); PLATELET COUNT (AUTO) 301 K/uL (150-450); RED BLOOD CELL COUNT(AUTO) 4.41 MIL/uL (4.5-6.0); WHITE BLOOD COUNT (AUTO) 16.3 K/uL (4.3-11.0)
[2022-12-23 08:00] VITALS: BP 141/86
[2022-12-23] MEDS: PANTOPRAZOLE 40 MG/PACK PACK PO SCH (08:34)
[2022-12-23 09:05] LABS: PHOSPHORUS 2.4 mg/dL (2.5-4.9)
[2022-12-23] MEDS: THIAMINE HCL 100 MG TABLET PO SCH (11:04)
[2022-12-23] MEDS: ACETAMINOPHEN 325 MG TABLET PO PRN (12:13)
[2022-12-23] MEDS: ENSURE CLEAR 237 ML LIQUID (MIX BERRY) PO SCH ×2 (13:00→17:38)
[2022-12-23] MEDS: ONDANSETRON HCL/PF 4 MG/2 ML VIAL IVP PRN (14:07)
[2022-12-23] MEDS ORDERED: NEUTRA PHOS 1 POWD.PACKET NG ONE (15:30)
[2022-12-23 16:00] VITALS: BP 151/99
[2022-12-23] MEDS: MORPHINE SULFATE INJ 4 MG/ML DISP.SYRIN IV PRN ×3 (16:53→21:45)
--- NOTE | 2022-12-23 18:46 | NUR ---
MS RN CLOSING NOTES: PT AWAKE, ALERT/ORIENTED X4 AND VERBALLY RESPONSIVE. ON 2L/MIN VIA N/C AND PT TOLERATED WELL. O2 SAT 99%. IV ACCESSES ON SORIN ML, RT WRIST#20G AND LEFT HAND #18 G INTACT AND PATENT. NO S/S OF INFILTRATIONS, NO C/O PAIN OR DISCOMFORT ON SURGERY SITE, MORPHINE GIVEN ORDERED. BILL CEE DRAINING WELL WITH SEROSANGUINEOUS FLUID. DRAINING 175CC FLUID. COLOSTOMY BAG IN PLACE SCANT OF BLEEDING 100ML REMOVED. NO SIGNIFICANT CHANGES NOTED. ANDREW CATHETER IN PLACE. DRAINING BY GRAVITY HETAL COLOR URINE. ALL SAFETY MEASURES IN PLACE. BED IN LOWEST POSITION AND LOCKED. SIDE RAILS UP X2. PLACE CALL LIGHT WITH IN REACH. WILL ENDORSE TO TEST KITCHEN HOME ECONOMIST NURSE. FOR CONTINUITY OF CARE.
--- NOTE | 2022-12-23 19:30 | NUR ---
MS RN OPENING NOTE RECEIVED PT IN BED AWAKE, ALERT/ORIENTED X 4 AND VERBALLY RESPONSIVE. CURRENTLY ON 2L VIA NC, TOLERATING WELL, SATING @ 97%. NO S/SX OF ACUTE RESPI DISTRESS NOTED AT THIS TIME. NO SOB. BREATHING IS EVEN AND UNLABORED. IV ACCESS ON SORIN ML RUNNING NS TKO AND RT WRIST#20G RUNNING 1/2 NS @ 50 CC/HR. BOTH PATENT AND INTACT. BILL CEE NOTED, DRAINING WELL BY GRAVITY WITH SEROSANGUINEOUS FLUID. COLOSTOMY BAG ALSO NOTED WITH MINIMAL BLOODY OUTPUT. ANDREW CATHETER IN PLACE, DRAINING YELLOW COLORED URINE BY GRAVITY. ALL SAFETY MEASURES IN PLACE: BED IN LOWEST POSITION AND LOCKED. SIDE RAILS UP X2. CALL LIGHT AND TABLE WITHIN REACH. WILL CONTINUE TO MONITOR PT. Addendum: 12/23/22 at 2117 by GARY SALGADO RN PT HAS D5NS + KCL 40 MEQ RUNNING @ 100 CC/HR.
[2022-12-23 20:00] VITALS: BP 152/89
[2022-12-23] MEDS: ZOLPIDEM TARTRATE 10 MG TABLET PO PRN (21:46)
[2022-12-24] MEDS: MORPHINE SULFATE INJ 4 MG/ML DISP.SYRIN IV PRN ×3 (01:32→07:49)
[2022-12-24] MEDS: METOCLOPRAMIDE HCL 10 MG/2 ML VIAL IV SCH ×4 (01:34→20:16)
[2022-12-24] MEDS: Potassium Chloride 40 MEQ in IV D5/ 0.9% NACL 1,000 ML IV SCH ×3 (01:38→22:14)
[2022-12-24] MEDS: ONDANSETRON HCL/PF 4 MG/2 ML VIAL IVP PRN ×2 (01:44→08:25)
--- NOTE | 2022-12-24 02:00 | NUR ---
RN NOTE PT REFUSED TO BE CLEANED AT THIS TIME. WANTS TO DO IT IN THE MORNING.
[2022-12-24 04:00] VITALS: BP 124/82
[2022-12-24] MEDS: PIPERACILLIN /TAZOBACTAM 3.375 G in IV D5W 100 ML IV SCH ×4 (04:02→21:08)
--- NOTE | 2022-12-24 06:24 | NUR ---
MS RN CLOSING NOTE PT REMAINED STABLE T/O THE NIGHT. ON MORPHINE IV Q2H PER PT'S REQUEST. VS STABLE. NO ACUTE RESPI DISTRESS NOTED. ALL DUE MEDS GIVEN. NEEDS MET. WILL ENDORSE TO AM SHIFT NURSE FOR BEAU.
[2022-12-24 06:54] LABS: BASOPHILS % (AUTO) 0.1 % (0.0-2.0); EOSINOPHILS % (AUTO) 0.2 % (0.0-6.0); HEMATOCRIT 35 % (39-51); HEMOGLOBIN 11.4 g/dL (13.5-17.5); LYMPHOCYTES # (AUTO) 1.2 K/uL (0.8-4.8); LYMPHOCYTES % (AUTO) 8.3 % (20.0-44.0); MEAN CORPUSCULAR HGB CONC 33 g/dl (31.0-36.0); MEAN CORPUSCULAR VOLUME 86 fL (80-96); MONOCYTES % (AUTO) 6.4 % (2.0-12.0); NEUTROPHILS # (AUTO) 12.6 K/uL (1.8-8.9); PLATELET COUNT (AUTO) 319 K/uL (150-450); RED BLOOD CELL COUNT(AUTO) 4.03 MIL/uL (4.5-6.0); WHITE BLOOD COUNT (AUTO) 14.8 K/uL (4.3-11.0)
--- NOTE | 2022-12-24 07:00 | NUR ---
RN OPENING NOTE RECEIVED PT IN BED AWAKE, ALERT/ORIENTED X 4 AND VERBALLY RESPONSIVE. ON ROOM AIR WITH NO S/S OF SOB OR RESPIRATORY DISTRESS. BREATHING IS EVEN AND UNLABORED. IV ACCESS ON SORIN ML RUNNING AND RT WRIST#20G. BOTH PATENT AND INTACT. BILL CEE NOTED, DRAINING WELL BY GRAVITY. COLOSTOMY BAG ALSO NOTED WITH MINIMAL BLOODY OUTPUT. ANDREW CATHETER IN PLACE, DRAINING YELLOW COLORED URINE BY GRAVITY. ALL SAFETY MEASURES IN PLACE: BED IN LOWEST POSITION AND LOCKED. SIDE RAILS UP X2. CALL LIGHT AND TABLE WITHIN REACH. WILL ENDORSE TO ONCOMING SHIFT FOR BEAU.
[2022-12-24 07:02] LABS: CALCIUM, SERUM 8.1 mg/dL (8.5-10.1); CREATININE 0.6 mg/dL (0.6-1.3); PHOSPHORUS 2.4 mg/dL (2.5-4.9); POTASSIUM 3.8 mmol/L (3.5-5.1)
[2022-12-24 08:00] VITALS: BP 135/92
[2022-12-24] MEDS: PANTOPRAZOLE 40 MG/PACK PACK PO SCH (08:09)
--- NOTE | 2022-12-24 08:12 | NUR ---
RN NOTE ON IV L HAND ACCESS REMOVED IV PER REQUEST DUE TO PAIN.
--- NOTE | 2022-12-24 08:20 | NUR ---
RN NOTE GAVE REPORT TO LUCIE ROACH AT 3W FOR TRANSFER. Addendum: 12/24/22 at 2119 by KATH GARVIN RN DISREGARD NOTE. WRONG TIME.
[2022-12-24] MEDS: ENSURE CLEAR 237 ML LIQUID (MIX BERRY) PO SCH ×2 (08:30→13:00)
--- NOTE | 2022-12-24 09:45 | NUR ---
PATIENT ABLE TO AMBULATE. STEADY ON FEET.
[2022-12-24] MEDS: THIAMINE HCL 100 MG TABLET PO SCH (10:39)
[2022-12-24] MEDS: HYDROCODONE/APAP 5/325MG TABLET PO PRN ×2 (10:40→20:16)
--- NOTE | 2022-12-24 10:52 | NUR ---
RN NOTES ON ANDREW REMOVED ANDREW CATHETER PER MD ORDER.
--- NOTE | 2022-12-24 10:57 | NUR ---
PATIENT ABLE TO VOID AFTER ANDREW D/C
[2022-12-24] MEDS ORDERED: NEUTRA PHOS 1 POWD.PACKET PO ONE (11:30)
[2022-12-24] MEDS ORDERED: NEUTRA PHOS 1 POWD.PACKET NG ONE (11:30)
--- NOTE | 2022-12-24 15:19 | NUR ---
FOLLOW-UP WITH NURSING SUP REQUEST BY DR. HILL TO TRANSFER PT TO [address] [place] [address].PER [facility] NEXT SHIFT,WILL ENDORSED.
[2022-12-24 16:00] VITALS: BP 138/81
[2022-12-24] MEDS ORDERED: ENSURE ENLIVE 237 ML LIQUID (VANILLA) PO SCH (18:00)
--- NOTE | 2022-12-24 18:50 | NUR ---
RN NOTES ON POTASSIUM DUE AT 1248 PREVIOUS BAG OF POTASSIUM DID NOT FINISH UNTIL 1850.
--- NOTE | 2022-12-24 19:00 | NUR ---
RN CLOSING NOTE PT IN BED AWAKE, ALERT/ORIENTED X 4 AND VERBALLY RESPONSIVE. ON ROOM AIR WITH NO S/S OF SOB OR RESPIRATORY DISTRESS. BREATHING IS EVEN AND UNLABORED. IV ACCESS ON SORIN ML RUNNING POTASSIUM CHLORIDE AT 100 ML/HR. BILL CEE DRAINING WELL BY GRAVITY. COLOSTOMY BAG ALSO NOTED WITH MINIMAL BLOODY OUTPUT. PATIENT AMBULATING WITH BATHROOM PRIVILEGES. ALL SAFETY MEASURES IN PLACE: BED IN LOWEST POSITION AND LOCKED. SIDE RAILS UP X2. CALL LIGHT AND TABLE WITHIN REACH. WILL ENDORSE TO ONCOMING SHIFT FOR BEAU.
--- NOTE | 2022-12-24 19:30 | NUR ---
MS RN OPENING NOTE RECEIVED PT IN BED AWAKE, ALERT/ORIENTED X 4 AND VERBALLY RESPONSIVE. ON ROOM AIR WITH NO S/S OF SOB OR RESPIRATORY DISTRESS. BREATHING IS EVEN AND UNLABORED. C/O INCISION PAIN 7/10. WILL GIVE PAIN MEDS PRESCRIBED. IV ACCESS ON SORIN ML RUNNING POTASSIUM CHLORIDE AT 100 ML/HR. BILL CEE DRAINING WELL BY GRAVITY. COLOSTOMY BAG ALSO NOTED WITH MINIMAL BLOODY OUTPUT. PATIENT AMBULATING WITH BATHROOM PRIVILEGES. FOR TRANSFER TO [facility], ROOM 329, PER ORDERS. ALL SAFETY MEASURES IN PLACE: BED IN LOWEST POSITION AND LOCKED, SIDE RAILS UP X2, CALL LIGHT AND TABLE WITHIN REACH. WILL CONTINUE TO MONITOR AND ASSIST.
[2022-12-24 20:00] VITALS: BP 140/91
--- NOTE | 2022-12-24 20:15 | NUR ---
RN NOTE GAVE REPORT TO LUCIE ROACH AT 3W FOR TRANSFER.
--- NOTE | 2022-12-24 20:55 | NUR ---
RN NOTE PT TRANSFERRED TO 3W. ROOM 329. ALL BELONGINGS, MEDS, CHART WITH PT ON BED.
--- NOTE | 2022-12-24 21:00 | NUR ---
RECEIVING RN NOTE PATIENT TRANSFERRED IN UNIT AT AROUND THIS TIME. A/OX4. NO S/S OF APPARENT DISTRESS IN ROOM AIR. PAIN UPON PALPATION IN ABDOMINAL AREA. DRESSING CLEAN, DRY, INTACT. WITH STEPHON DRAIN WITH NO OUTPUT NOTED. COLOSTOMY BAG INTACT WITH REDDISH, BROWN OUTPUT AND OSTOMY BEEFY RED WITH BROWN-RICHARD DISCOLORATION. PATIENT HAS R.UA MIDLINE INTACT AND PATENT-- WILL START ON HIS ZOSYN ANTIBIOTIC. PATIENT ORIENTED IN THE UNIT AND THE USE OF CALL LIGHT. PATIENT BELONGING AND MEDICATIONS BROUGHT IN BY LUCIE STOCKTON. SAFETY IN PLACE-- BED IN LOWEST, LOCKED POSITION, BED RAILS UPX2, CALL LIGHT WITHIN REACH. V/S FOLLOWS: 118/59, HR- 93, T-98.4, SATURATING 97% ON ROOM AIR. WILL CONTINUE WITH THE PLAN OF CARE FOR PATIENT.
[2022-12-24] MEDS: ZOLPIDEM TARTRATE 10 MG TABLET PO PRN (22:05)
[2022-12-25] MEDS: Potassium Chloride 40 MEQ in IV D5/ 0.9% NACL 1,000 ML IV SCH ×3 (00:17→19:59)
[2022-12-25] MEDS: HYDROCODONE/APAP 5/325MG TABLET PO PRN ×5 (00:20→22:24)
--- NOTE | 2022-12-25 00:23 | NUR ---
noc rn note- OMNICELL RETURN Pulled out reglan INJ thinking it's due for 0000. Medication due @0230 am. Returned unopened vial to [facility]. Will pull out another one later.
--- NOTE | 2022-12-25 02:01 | NUR ---
noc rn note- scanning K+ Chl in D5 ns was hanged 2300 but it did not scan, instead it scanned on the 1200 noon one. but the scheduled 2300 was hanged on my shift.
[2022-12-25] MEDS: METOCLOPRAMIDE HCL 10 MG/2 ML VIAL IV SCH ×4 (02:30→20:36)
--- NOTE | 2022-12-25 02:38 | NUR ---
noc rn note - non-administered Scheduled 0 of Reglan refused by patient. and to quote "No, I want to sleep more right now".
[2022-12-25] MEDS: PIPERACILLIN /TAZOBACTAM 3.375 G in IV D5W 100 ML IV SCH ×3 (04:07→20:01)
--- NOTE | 2022-12-25 06:05 | NUR ---
noc rn note patient c/o 7/10 pain in his incision site. Given Ravia as ordered PRN. will re-assess.
--- NOTE | 2022-12-25 06:12 | NUR ---
noc rn note Patient very emotional about his colostomy and in a state of frustration and I would say grief. To quote patient: "This wouldn't have happened if they didn't give me milk" "Even the Doctor confessed that yea it ruptured because of that" etc. Emotional support offered/given. patient is just very upset.
[2022-12-25 06:50] LABS: BASOPHILS % (AUTO) 0.2 % (0.0-2.0); EOSINOPHILS % (AUTO) 0.9 % (0.0-6.0); HEMATOCRIT 34 % (39-51); HEMOGLOBIN 11.3 g/dL (13.5-17.5); LYMPHOCYTES # (AUTO) 1.1 K/uL (0.8-4.8); LYMPHOCYTES % (AUTO) 9.7 % (20.0-44.0); MEAN CORPUSCULAR HGB CONC 34 g/dl (31.0-36.0); MEAN CORPUSCULAR VOLUME 85 fL (80-96); MONOCYTES # (AUTO) 0.9 K/uL (0.1-1.30); MONOCYTES % (AUTO) 8.3 % (2.0-12.0); NEUTROPHILS # (AUTO) 9.2 K/uL (1.8-8.9); NEUTROPHILS % (AUTO) 80.9 % (43.0-81.0); PLATELET COUNT (AUTO) 376 K/uL (150-450); RED BLOOD CELL COUNT(AUTO) 3.93 MIL/uL (4.5-6.0); WHITE BLOOD COUNT (AUTO) 11.4 K/uL (4.3-11.0)
[2022-12-25 07:00] VITALS: BP 128/94
[2022-12-25 07:24] LABS: CALCIUM, SERUM 8.3 mg/dL (8.5-10.1); CREATININE 0.5 mg/dL (0.6-1.3); PHOSPHORUS 3.2 mg/dL (2.5-4.9); POTASSIUM 3.5 mmol/L (3.5-5.1)
--- NOTE | 2022-12-25 07:25 | NUR ---
RN OPENING NOTE- PT IN BED AWAKE, ALERT/ORIENTED X 4. BREATHING IS NON-LABORED. IV ACCESS ON SORIN ML RUNNING POTASSIUM CHLORIDE AT 100 ML/HR. STEPHON - DRAINING SEROUS DRAINIAGE. . COLOSTOMY BAG ALSO NOTED WITH BROWN LIQUID STOOL. PATIENT AMBULATING WITH BATHROOM PRIVILEGES. ALL SAFETY MEASURES IN PLACE: BED IN LOWEST POSITION AND LOCKED, SIDE RAILS UP X2, CALL LIGHT AND TABLE WITHIN REACH. WILL CONTINUE TO MONITOR AND ASSIST.
[2022-12-25] MEDS: LORAZEPAM INJ 2 MG/ML VIAL IV PRN (07:26)
--- NOTE | 2022-12-25 07:27 | NUR ---
noc rn note All needs attended. all scheduled medications administered. safety in place. endorsed to rosemarie Harris RN for continuity of care.
--- NOTE | 2022-12-25 07:32 | NUR ---
RN NOTE- PT W ANXIOUSNESS AND RESTLESSNESS ON INITIAL MORRNING ASSESSMENT. "RORRYING ABOUT COLOSTOMY AND WORK." SPOKE W PATIENT, ANSWERED QUESTIONS. ATIVAN 1 MG IVP ADMINISTERED
[2022-12-25] MEDS: PANTOPRAZOLE 40 MG/PACK PACK PO SCH (09:30)
[2022-12-25] MEDS ORDERED: HYDR-4303 PO (10:03)
[2022-12-25] MEDS ORDERED: PANT40TA2 PO (10:03)
[2022-12-25] MEDS ORDERED: CIPR-262 PO (10:24)
[2022-12-25] MEDS ORDERED: METR500T PO (10:24)
[2022-12-25] MEDS: THIAMINE HCL 100 MG TABLET PO SCH (11:16)
[2022-12-25 16:00] VITALS: BP 134/90
--- NOTE | 2022-12-25 18:41 | NUR ---
RN CLOSING NOTE- BETTER TODAY, LESS PAIN, LESS COMPLAINTS, PT IN BED AWAKE, ALERT/ORIENTED X 4. IV ACCESS ON SORIN ML RUNNING POTASSIUM CHLORIDE AT 100 ML/HR. STEPHON - DRAINING SEROUS DRAINIAGE. . COLOSTOMY BAG ALSO NOTED WITH BROWN LIQUID STOOL. CHANGED COLOSTOMY TWICE AND EMPTIED NUMEROUS TIMES. DRESSING CHANGE TO ABDOMINAL SURGICAL INCISION COMPLETED. NO DEHISCENCE, NO EXUDATE, NO ERYTHEMA OR PURULENCE. PATIENT AMBULATING WITH BATHROOM PRIVILEGES. ALL SAFETY MEASURES IN PLACE: BED IN LOWEST POSITION AND LOCKED, SIDE RAILS UP X2, CALL LIGHT AND TABLE WITHIN REACH. WILL CONTINUE TO MONITOR AND ASSIST.
--- NOTE | 2022-12-25 19:30 | NUR ---
MS RN OPENING NOTES - RECEIVED PATIENT AWAKE IN BED. A/O X4. BREATHING EVEN AND NON-LABORED ON ROOM AIR. NOT IN APPARENT DISTRESS. VERBALIZED HE ALWAYS HAS ABDOMINAL PAIN AT 5-7/10. HAS RIGHT UPPER ARM MIDLINE #18G WITH KCL 40MEQ IN D5NS RUNNING AT 100 ML/HR. NO S/S OF INFILTRATION NOTED. HAS LUQ COLOSTOMY BAG. HAS RLQ STEPHON DRAIN. ABDOMINAL SURGICAL WOUND DRESSING INTACT. SAFETY PRECAUTIONS IN PLACE: BED LOCKED AND IN LOW POSITION, SIDE RAILS UP X2, CALL LIGHT WITHIN REACH. WILL CONTINUE PLAN OF CARE.
[2022-12-25 20:00] VITALS: BP 116/81
[2022-12-25] MEDS: ZOLPIDEM TARTRATE 10 MG TABLET PO PRN (21:32)
--- NOTE | 2022-12-25 21:35 | NUR ---
REQUESTED PRN AMBIEN 10MG.
--- NOTE | 2022-12-25 22:30 | NUR ---
C/O ABDOMINAL PAIN 7-04/24. GAVE PRN NORCO 5-325MG. WILL CONTINUE TO MONITOR.
[2022-12-26] MEDS: METOCLOPRAMIDE HCL 10 MG/2 ML VIAL IV SCH ×4 (02:32→19:38)
[2022-12-26] MEDS: PIPERACILLIN /TAZOBACTAM 3.375 G in IV D5W 100 ML IV SCH ×3 (03:20→19:38)
[2022-12-26] MEDS: Potassium Chloride 40 MEQ in IV D5/ 0.9% NACL 1,000 ML IV SCH ×2 (05:55→15:41)
[2022-12-26 06:26] LABS: BASOPHILS % (AUTO) 0.3 % (0.0-2.0); EOSINOPHILS % (AUTO) 2.2 % (0.0-6.0); HEMATOCRIT 37 % (39-51); HEMOGLOBIN 12.1 g/dL (13.5-17.5); LYMPHOCYTES # (AUTO) 2.2 K/uL (0.8-4.8); LYMPHOCYTES % (AUTO) 16.7 % (20.0-44.0); MEAN CORPUSCULAR HGB CONC 32 g/dl (31.0-36.0); MEAN CORPUSCULAR VOLUME 88 fL (80-96); MONOCYTES # (AUTO) 1.2 K/uL (0.1-1.30); MONOCYTES % (AUTO) 9.2 % (2.0-12.0); NEUTROPHILS # (AUTO) 9.2 K/uL (1.8-8.9); NEUTROPHILS % (AUTO) 71.6 % (43.0-81.0); PLATELET COUNT (AUTO) 442 K/uL (150-450); RED BLOOD CELL COUNT(AUTO) 4.26 MIL/uL (4.5-6.0); WHITE BLOOD COUNT (AUTO) 12.9 K/uL (4.3-11.0)
[2022-12-26 06:35] LABS: CALCIUM, SERUM 8.6 mg/dL (8.5-10.1); CREATININE 0.6 mg/dL (0.6-1.3); PHOSPHORUS 4.4 mg/dL (2.5-4.9); POTASSIUM 3.6 mmol/L (3.5-5.1)
--- NOTE | 2022-12-26 06:41 | NUR ---
MS RN CLOSING NOTES - PATIENT SLEEPING, EASY TO AROUSE. ABLE TO VERBALIZE NEEDS. NO CARDIAC OR RESPIRATORY DISTRESS THROUGHOUT THE NIGHT. AFEBRILE. CAN TOLERATE HIS ABDOMINAL PAIN AT THIS TIME. RIGHT UPPER ARM MIDLINE INTACT, PATENT AND FLUSHING. ABDOMINAL SURGICAL DRESSING C/D/I. EMPTIED COLOSTOMY BAG TWICE, BROWNISH/GREENISH LIQUID STOOL NOTED. STEPHON DRAINING SEROUS/BROWN FLUID. TOLERATING CURRENT DIET WELL. ALL DUE MEDS GIVEN AND NEEDS ATTENDED. AMBULATORY WITH STEADY GAIT. SAFETY PRECAUTIONS MAINTAINED. WILL ENDORSE TO NEXT SHIFT FOR BEAU.
[2022-12-26 07:00] VITALS: BP 138/81
[2022-12-26] MEDS: HYDROCODONE/APAP 5/325MG TABLET PO PRN ×2 (07:07→19:36)
--- NOTE | 2022-12-26 08:08 | NUR ---
OPENING NOTE: PATIENT IS IN BED, CALM AND AWAKE, A/O X 4 , ABLE TO VERBALIZE NEEDS. NO CARDIAC OR RESPIRATORY DISTRESS. COLOSTOMY SITE IN GOOD SHAPE, HAD PAIN 8 OUT OF 10 THIS MORNING AND RECEIVED NORCO AT 7:30 AM , THE PAIN IS AT 3 AT THIS TIME AND PT IS COMFORTABLE IN BED , PAIN MED WAS EFFECTIVE . RIGHT UPPER ARM MIDLINE IS INTACT, PATENT AND FLUSHING. ABDOMINAL SURGICAL DRESSING C/D/I IS DRY AND INTACT. EMPTIED STEPHON DRAINING (15 ML OF SEROUS/BROWN FLUID) , BROWNISH/GREENISH LIQUID STOOL NOTED WHICH IS BECOMING FORMED . TOLERATING CURRENT DIET WELL. AMBULATORY WITH STEADY GAIT. SAFETY PRECAUTIONS MAINTAINED. MORNING LAB RESULTS ARE BACK (CBC , 12.9, HGB 12.1, HCT 37, BUN 5, CREATININE 0.6) . NEEDS ATTENDED AT THIS TIME. WILL MAINTAIN BEAU.
[2022-12-26] MEDS: PANTOPRAZOLE 40 MG/PACK PACK PO SCH (08:34)
[2022-12-26] MEDS: THIAMINE HCL 100 MG TABLET PO SCH (10:29)
[2022-12-26 16:00] VITALS: BP 139/85
--- NOTE | 2022-12-26 18:47 | NUR ---
RN CLOSING NOTE: PATIENT IS IN BED WATCHING TV. AWAKE, A/O X 4 , ABLE TO VERBALIZE NEEDS. NO CARDIAC OR RESPIRATORY DISTRESS. CAME TODAY AND CHANGED HIS DIET TO REGULAR DIET ( HE HAD A HAMBURGER FOR LUNCH). COLOSTOMY SITE IN GOOD SHAPE, RECEIVED PAIN MEDICATION AND HIS OTHER MEDS. PAIN MED WAS EFFECTIVE . RIGHT UPPER ARM MIDLINE IS INTACT, PATENT AND FLUSHING. ABDOMINAL SURGICAL DRESSING C/D/I IS DRY AND INTACT AND CHANGED THIS AFTERNOON. LITTLE STEPHON DRAINING , BROWNISH/SEMI SOFT STOOL NOTED WHICH IS BECOMING MORE FORMED . TOLERATING CURRENT DIET WELL. AMBULATORY WITH STEADY GAIT. SAFETY PRECAUTIONS MAINTAINED. NEEDS ATTENDED AT THIS TIME. ALL SAFETY MEASURES ARE IN PLACE. WILL ENDORSE TO NEXT SHIFT FOR EBAU.
--- NOTE | 2022-12-26 19:30 | NUR ---
RN Opening Notes Received pt in bed, awake. AOx4, able to make needs known. On RA and tolerating well. No SOB noted. No s/sx of respiratory distress noted. IV access in SORIN Midline #18G running D5NS with 40 mEQ KCl @ 100 mL/hr. Safety precautions in place: bed in lowest, locked position, siderails upX2, and brakes on. Table and call light within reach. All needs met at this time.
[2022-12-26 20:00] VITALS: BP 148/72
[2022-12-26] MEDS: ZOLPIDEM TARTRATE 10 MG TABLET PO PRN (22:47)
--- NOTE | 2022-12-26 22:52 | NUR ---
RN Notes Administered ambien for sleep per MD order.
--- NOTE | 2022-12-27 | NUR ---
RN Notes Upon changing colostomy bag, stoma noted to be black/blue with pink in the middle. Picture taken. Per patient "Dr. Thompson has seen it and said 'it is alive!'" Per patient, stoma has been this color since surgery.
[2022-12-27] MEDS: HYDROCODONE/APAP 5/325MG TABLET PO PRN ×2 (00:12→06:17)
--- NOTE | 2022-12-27 00:12 | NUR ---
RN Notes Administered norco for pain per MD order.
[2022-12-27] MEDS: Potassium Chloride 40 MEQ in IV D5/ 0.9% NACL 1,000 ML IV SCH ×2 (02:11→13:42)
[2022-12-27] MEDS: METOCLOPRAMIDE HCL 10 MG/2 ML VIAL IV SCH ×2 (02:12→08:36)
[2022-12-27] MEDS: PIPERACILLIN /TAZOBACTAM 3.375 G in IV D5W 100 ML IV SCH ×2 (04:42→11:34)
--- NOTE | 2022-12-27 06:18 | NUR ---
RN Notes Administered norco for pain per MD order.
--- NOTE | 2022-12-27 06:53 | NUR ---
RN Closing Notes Pt in bed, awake. AOx4, able to make needs known. On RA and tolerating well. No SOB noted. No s/sx of respiratory distress noted. IV access in SORIN Midline #18G running D5NS with 40 mEQ KCl @ 100 mL/hr. All orders carried out. All needs met. Pt kept clean and dry. Treated pain throughout shift. Safety precautions in place: bed in lowest, locked position, siderails upX2, and brakes on. Table and call light within reach. Will endorse to oncoming shift for BEAU.
[2022-12-27 06:55] LABS: BASOPHILS % (AUTO) 0.3 % (0.0-2.0); EOSINOPHILS % (AUTO) 2.4 % (0.0-6.0); HEMATOCRIT 35 % (39-51); HEMOGLOBIN 11.6 g/dL (13.5-17.5); LYMPHOCYTES # (AUTO) 2.1 K/uL (0.8-4.8); LYMPHOCYTES % (AUTO) 15.6 % (20.0-44.0); MEAN CORPUSCULAR HGB CONC 33 g/dl (31.0-36.0); MEAN CORPUSCULAR VOLUME 86 fL (80-96); MONOCYTES # (AUTO) 1.2 K/uL (0.1-1.30); MONOCYTES % (AUTO) 8.8 % (2.0-12.0); NEUTROPHILS # (AUTO) 9.8 K/uL (1.8-8.9); NEUTROPHILS % (AUTO) 72.9 % (43.0-81.0); PLATELET COUNT (AUTO) 453 K/uL (150-450); RED BLOOD CELL COUNT(AUTO) 4.09 MIL/uL (4.5-6.0); WHITE BLOOD COUNT (AUTO) 13.5 K/uL (4.3-11.0)
[2022-12-27 07:34] LABS: CALCIUM, SERUM 8.6 mg/dL (8.5-10.1); CREATININE 0.6 mg/dL (0.6-1.3); MAGNESIUM 1.9 mg/dL (1.8-2.4); PHOSPHORUS 4.5 mg/dL (2.5-4.9); POTASSIUM 3.4 mmol/L (3.5-5.1)
--- NOTE | 2022-12-27 07:40 | NUR ---
MS CARE TEAM ASSISTANT OPENING NOTE PATIENT RECEIVED RESTING IN BED, A/A/OX4. O2 IN ROOM AIR, NO S/S OF RESPIRATORY DISTRESS NOTED. ABDOMEN BOWEL SOUND ACTIVE WITH COLOSTOMY IN PLACE, STOMA DARK COLOR NOTED, WITH LIGHT BROWN/ GREENISH COLORED SOFT STOOL NOTED. PATIENT TOLERATING SOFT DIET. MID ABDOMEN INCISION SITE DRESSING D/C/I. PATIENT IS AMBULATORY. STEPHON IN RLQ NO DRAIN AT PRESENT NOTED. IV ACCESS SORIN #18G INFUSING IVF D5NS+40MEQ KCL AT 100ML/HR. SAFETY MEASURES IN PLACE: BED LOCKED TO THE LOWEST POSITION, SIDE RAILS UPX2, CALL LIGHT AND TABLE WITHIN REACH. WILL CONT. TO MONITOR.
[2022-12-27] MEDS: PANTOPRAZOLE 40 MG/PACK PACK PO SCH (08:45)
[2022-12-27] MEDS ORDERED: POTASSIUM CHLORIDE 20 MEQ TAB.PRT.SR PO ONE (10:00)
[2022-12-27] MEDS: THIAMINE HCL 100 MG TABLET PO SCH (11:24)
--- NOTE | 2022-12-27 13:00 | NUR ---
MS RN NOTE SEEN BY DR. HILL WITH ORDER FOR DISCHARGE. STEPHON DRAIN REMOVED AND COVERED WITH DRY DRESSING. PROCEDURE TOLERATED WELL. DR. HILL GAVE PATIENT INSTRUCTIONS. PATIENT VERBALIZED UNDERSTANDING AND APPRECIATION. PATIENT IN STABLE CONDITION. WILL NOTIFY HOSPITALIST OF DR. HILL'S ORDER.
--- NOTE | 2022-12-27 14:00 | NUR ---
MS RN NOTE HOSPITALIST MELISSA WITH ORDER FOR DISCHARGE. HEALTH TEACHING DONE REGARDING DISCHARGE AND DISCHARGE INSTRUCTIONS INCLUDING ANTIBIOTIC ORDERS. VERBALIZED UNDERSTANDING AND APPRECIATION. PATIENT WILL BE PICKED UP BY FRIEND. FOOD AND BEVERAGE ANALYST AWARE OF DISCHARGE AND WILL SET UP HOME HEALTH FOR THE PATIENT. PATIENT PROVIDED WITH MATERIALS FOR WOUND AND OSTOMY CHANGE. VERBALIZED APPRECIATION.
--- NOTE | 2022-12-27 14:18 | NUR ---
UPDATED INFO CONTACT NUMBER ADDRESS [id number], [place] [address]
--- NOTE | 2022-12-27 16:00 | NUR ---
KNITTER WIRE MESH DISCHARGE NOTE PATIENT STABLE TO BE DISCHARGED PER DOCTOR ORDER. DISCHARGE INSTRUCTION EXPLAINED TO PATIENT INCLUDING ABDOMINAL INCISION CARE WITH JUANCARLOS IN PLACE. KEEP DRY AND CLEAN. ABDOMINAL INCISION D/C/I. THE OLD STEPHON SITE DRESSING D/C/I. WOUND CARE EXPLAINED TO PATIENT HE WILL FOLLOW UP WITH HIS PRIMARY DOCTOR WITHIN 1-2 WEEKS TO CONTINUE PO ANTIBIOTICS PRESCRIBED BY THE DOCTOR. ALL PRESCRIPTION SENT TO HIS PHARMACY. AND ALSO FOLLOW UP WITH THE SURGEON IN 1 WEEK FOR JUANCARLOS REMOVAL AND HE VERBALIZED UNDERSTANDING INSTRUCTIONS. PATIENT WAS ABLE TO DEMONSTRATE HOW TO CHANGE THE COLOSTOMY BAG AND EMPTY THE BAG WITHOUT DIFFICULTY. HOME HEALTH NURSE WILL FOLLOW UP. VITAL SIGN WNL. IV ACCESS REMOVED, CATHETER TIP INTACT AND NO S/S OF INFILTRATION NOTED. PRESSURE DRESSING APPLIED TO IV SITE. PATIENT SIGNED DISCHARGE FORMS AND BELONGING FORM COMPLETED AND SIGNED. PATIENT IS GOING HOME VIA AMBULATORY ACCOMPANIED BY PATIENT'S FRIEND AND NURSE ELLEN.
--- NOTE | 2022-12-27 16:10 | NUR ---
MS RN NOTE PATIENT ABLE TO REPEAT INSTRUCTIONS AND ABLE TO DEMONSTRATE WAYS ON HOW TO CHANGE COLOSTOMY BAG. PATIENT REMINDED TO CALL INSURANCE REGARDING HOME HEALTH ASSIGNMENT. HE SAID HE ALREADY GOT A CALL FROM THE INSURANCE REGARDING SUPPLY ARRANGEMENT AND HOME HEALTH. VERBALIZED UNDERSTANDING AND APPRECIATION. DISCHARGED ORDERED. ENDORSED ACCORDINGLY.
== END 2022-12-27 16:21 | disposition home health service (06) | DRG 710 ==
LOC: ER 14:05 → TELE1 19:32 → MEDSG1 12-19 07:51 → MED 12-24 20:51
PROVIDERS: ADMIT Nurse Practitioner Acute Care; ATTEND Nurse Practitioner Acute Care
PROC: 05H933Z Insertion of Infusion Device into Right Brachial Vein, Percutaneous Approach (ICD-10-PCS; 2022-12-20)
PROC: 0DBN0ZZ Excision of Sigmoid Colon, Open Approach (ICD-10-PCS; principal; 2022-12-22)
PROC: 0D1N0Z4 Bypass Sigmoid Colon to Cutaneous, Open Approach (ICD-10-PCS; 2022-12-22)
DX: A41.9 Sepsis, unspecified organism (principal); K65.9 Peritonitis, unspecified; E87.20 Acidosis, unspecified; K66.8 Other specified disorders of peritoneum; K76.0 Fatty (change of) liver, not elsewhere classified; K57.20 Diverticulitis of large intestine with perforation and abscess without bleeding; K56.7 Ileus, unspecified; E66.9 Obesity, unspecified; Z68.41 Body mass index [BMI] 40.0-44.9, adult; E66.01 Morbid (severe) obesity due to excess calories; F12.90 Cannabis use, unspecified, uncomplicated; R74.01 Elevation of levels of liver transaminase levels; E87.6 Hypokalemia
CPT/HCPCS: 36410; 36415; 74178; 80048-TC; 80053-TC; 80076-TC; 80202-TC; 82565-TC; 82962-TC; 83605-TC; 83690-TC; 83735-TC; 84100-TC; 85025-TC; 85610-TC; 85730-TC; 87040-TC; 87081-TC; 88307-TC; 97112-TC; 97116-TC; 97530-TC; A4223; A6253; A6403; C9113; C9803; G0378; J0330; J0690; J1100; J1170; J1885; J2060; J2250; J2270; J2405; J2543; J2704; J2765; J3010; J3370; J3411; J3480; J3490; J7030; J7040; J7042; J7050; J7060; P9045; P9047; Q9967

== ENCOUNTER 2023-01-04 09:45 | Emergency (ER) | payer OTHER ==
[~2023-01-04] VITALS: Ht 175.3 cm; Wt 127.0 kg
[~2023-01-04 09:45] MED LIST: CIPR-262 PO; HYDR-4303 PO; METR500T PO; PANT40TA2 PO
[2023-01-04 09:54] VITALS: BP 128/75
--- NOTE | 2023-01-04 10:00 | NUR ---
SUTURE REMOVAL,S/P EXPLORE LAP 12/17/22 W/ COLOSTOMY
[2023-01-04] MEDS ORDERED: BENZOIN COMPOUND TINCT 60 ML BOTTLE ONE (10:11)
--- NOTE | 2023-01-04 10:15 | NUR ---
colostomy bag changed
--- NOTE | 2023-01-04 11:05 | NUR ---
Patient discharged to home in stable condition. Written and verbal after care instructions given. Patient verbalizes understanding of instruction.
== END 2023-01-04 11:06 | disposition home or self-care (01) ==
LOC: ER 09:52
DX: Z43.3 Encounter for attention to colostomy (principal); Z60.2 Problems related to living alone; Z79.899 Other long term (current) drug therapy